=== PATIENT | female | born 1965 | race Caucasian/White ===

== ENCOUNTER → 2016-12-04 | Outpatient (CLI) | payer BC ==
[~2016-12-04] MED LIST: DICL50TA3 PO; HYDR-3126 PO; MULT-513 PO; VALA1TAB2 PO
== END | disposition home or self-care (01) ==
LOC: C.PAPS 08:20
PROVIDERS: ATTEND Obstetrics & Gynecology
DX: Z01.419 Encounter for gynecological examination (general) (routine) without abnormal findings (principal)

== ENCOUNTER → 2017-03-01 | Outpatient (CLI) | payer BC | END | disposition home or self-care (01) | LOC: C.PATHSPEC 16:09 | PROVIDERS: ATTEND Obstetrics & Gynecology | DX: N84.1 Polyp of cervix uteri (principal) ==

== ENCOUNTER → 2017-05-06 | Outpatient (CLI) | payer BC ==
--- NOTE | 2017-05-07 13:22 | MAMMOGRAPHY REPORT ---
BILATERAL DIGITAL SCREENING MAMMOGRAM 3D/2D WITH CAD: 05/06/2017 CLINICAL HISTORY: Routine screening. Patient has no complaints. TECHNIQUE: Breast tomosynthesis in addition to standard 2D mammography was performed. Current study was also evaluated with a Computer Aided Detection (CAD) system. COMPARISON: Comparison is made to exams dated: 05/04/2016 mammogram, 05/03/2015 mammogram, 04/27/2014 m ammogram, 04/23/2013 mammogram, 04/22/2012 mammogram, and 01/04/2011 mammogram - [facility] enter. BREAST COMPOSITION: There are scattered areas of fibroglandular density in both breasts. There have been involutional changes comparing to more remote prior mammograms. FINDINGS: No new suspicious mass, architectural distortion or cluster of microcalcifications is seen . ACR BI-RADS CATEGORY 1: NEGATIVE There is no mammographic evidence of malignancy. A 1 year screening mammogram is recommended. The pa tient will receive written notification of the results. Approximately 10% of breast cancers are not detected with mammography. A negative mammographic report should not delay biopsy if a clinically suggestive mass is present. Didi Lundberg M.D. ay/:05/06/2017 16:15:21 Yeast Pusher: Gali QUEEN(Derrick)(Joo)(BD), [facility] letter sent: Normal 1/2 BI-RADS Code: ACR BI-RADS Category 1: Negative
== END | disposition home or self-care (01) ==
LOC: C.MAMM 15:28
PROVIDERS: ATTEND Nurse Practitioner Family
DX: Z12.31 Encounter for screening mammogram for malignant neoplasm of breast (principal)

== ENCOUNTER 2017-11-24 19:17 | Emergency (ER) | payer BC, OTHER ==
[~2017-11-24] VITALS: Ht 167.6 cm; Wt 71.8 kg
[2017-11-24 19:29] VITALS: TEMP 36.8; Ht 167.6 cm; Wt 71.8 kg
[2017-11-24] MEDS ORDERED: AMOXICILLIN/CLAVULANATE TAB 875 MG TAB PO ONE (20:00)
[2017-11-24] MEDS ORDERED: DIPHTHERIA/TETANUS/PERTUSSIS 0.5 ML SYR/VIAL IM. ONE (20:00)
[2017-11-24] MEDS ORDERED: XYLOCAINE 1%/SOD BICARB 20 ML VIAL INFIL ONE (20:00)
[2017-11-24] MEDS ORDERED: AMOX875T PO (20:34)
--- NOTE | 2017-11-24 20:35 | EMERGENCY ROOM VISIT NOTE ---
History First contact with patient: 19:46 Chief Complaint: LACERATION/CUT (NON-SUTURE) Stated Complaint: CUT ON CHIN AND LIP Nursing Triage Summary: pt states she was up on step stool and fell, lac to chin and lip History of Present Illness The patient is a 52 year old female who presents to the Emergency Room with complaints of a laceration to her face that she sustained when she accidentally fell off of a stepstool striking her face on a vacuum septic cleaner. There is no loss of consciousness. She denies any headache, neck pain, changes in vision or nausea. She is unsure of her last tetanus shot. Review of Systems 6 system review negative. Please see pertinent positives in the history of present illness section. Family History No significant family history Social History Smoking Status: Never Smoker Alcohol Use: none Housing Status: lives with family Occupation Status: employed Current/Historical Medications Scheduled Amoxicillin & Pot Clavulanate (Augmentin 875-125 mg), 1 TAB PO BID Physical Exam Vital Signs Date Time Temp Pulse Resp B/P (MAP) Pulse Ox O2 Delivery O2 Flow Rate FiO2 11/24/17 20:43 70 18 131/80 97 11/24/17 19:29 36.8 81 18 158/74 97 Room Air Physical Exam VITALS: Vitals are noted on the nurse's note and reviewed by myself. Vital signs stable. GENERAL: 52-year-old female, in no acute distress, nondiaphoretic, well- developed well-nourished. HEAD: 0.5 cm, superficial, non-gaping laceration noted inferior to the right side of the lip. No active bleeding. EYES: Conjunctivae without injection, sclerae without icterus. Extraocular movements intact. MOUTH: Mucous membranes moist. There is a 1 cm laceration to the wet vermilion border of the lower lip. It is gaping. No active bleeding. No foreign material in the wound. It appears clean. The teeth are intact. NECK: Supple without nuchal rigidity. Full range of motion NEURO: Patient was alert and oriented to person place and time. Normal sensation to touch. No focal neurological deficits. Medical Decision & Procedures Medications Administered Medications (Trade) Dose Ordered Sig/Nelsy Route Start Time Stop Time Status Last Admin Dose Admin Diphtheria/ Pertussis/Tetanus Vacc (Adacel Inj) 0.5 ml ONCE ONCE IM. 11/24/17 20:00 11/24/17 20:01 DC 11/24/17 20:14 0.5 ML Amoxicillin/ Clavulanate Potassium (Augmentin Tab) 875 mg NOW ONCE PO 11/24/17 20:00 11/24/17 20:02 DC 11/24/17 20:14 875 MG Procedure Verbal consent was obtained to perform the procedure. The wound inferior to the lip was thoroughly cleansed with Betadine and normal saline. The wound edges were approximated very well with Dermabond. Patient tolerated the procedure well. The laceration in the mouth was repaired using the following technique 2 ml of 1% buffered lidocaine was used to anesthetize the laceration. Once the patient was anesthetized, the wound was copiously irrigated under pressure with sterile saline. The wound was explored. Again no foreign material in the wound. The laceration was repaired using 2 simple interrupted 5-0 nylon sutures with the wound edges being well approximated. ED Course The patient was seen and examined She was given an Adacel injection. She was also given 1 dose of Augmentin. The lacerations were repaired. Please see my procedure note. Discharge instructions were reviewed, and she was discharged in good condition Medical Decision Differential diagnosis: Laceration, facial injury, mandibular fracture, dental fracture, head injury This patient is a 52-year-old female who presented to the emergency department with a lacerations as noted above as a result of a fall. She does not have any signs of a head injury. No tenderness over the facial bones. The teeth are well aligned. Lacerations were repaired. She will be put on prophylactic antibiotics as the one laceration is in the oral mucosa. She tolerated the procedure well. She will follow-up in 6-7 days for removal of sutures. Her tetanus shot was also updated. She will return with signs of infection. This chart was completed in part utilizing [employer] Speech Voice Recognition software. Attempts were made to minimize the grammatical errors, random word insertions, pronoun errors and incomplete sentences. Any formal questions or concerns about the content, text or information contained within the body of this dictation should be directly addressed to the provider for clarification. Impression Primary Impression: Laceration Departure Information Dispostion Home / Self-Care Condition GOOD Prescriptions Amoxicillin & Pot Clavulanate (Augmentin 875-125 mg) 1 Tab Tab 1 TAB PO BID for 5 Days, #10 TAB Prov: Clemencia Medeiros PA-C 11/24/17 Referrals Alejandra Gentile DO (PCP) Patient Instructions My [facility] Additional Instructions Please try to gargle twice daily with mouthwash or salt water. Please take ibuprofen 600 mg as needed for pain every 6 hours. Please take the entire course of antibiotics. Please eat yogurt daily with this medication Suture removal will be in 6-7 days. Please watch for signs of infection such as redness, swelling or fever. For these, please return to the emergency department. It was a pleasure participating in your care today.
[2017-11-24 20:43] VITALS: BP 131/80; PULSE 70; O2SAT 97
== END 2017-11-24 20:44 | disposition home or self-care (01) ==
LOC: C.EDB 19:19 → C.EDD 20:44
DX: S01.81XA Laceration without foreign body of other part of head, initial encounter (principal); W10.8XXA Fall (on) (from) other stairs and steps, initial encounter; Z23 Encounter for immunization

== ENCOUNTER → 2017-12-02 | Outpatient (CLI) | payer OTHER ==
--- NOTE | 2017-12-02 16:29 | DIAGNOSTIC IMAGING REPORT ---
R WRIST MIN 3 VIEWS ROUTINE CLINICAL HISTORY: 52 years-old Female presenting with EFFUSION, R WRIST, fall one week ago, pain and swelling along the posterior surface of the right wrist. TECHNIQUE: Frontal, bilateral oblique, and lateral views of the right wrist were obtained. COMPARISON: None. FINDINGS: No acute fracture or malalignment. No advanced degenerative change. No radiographic soft tissue abnormality. IMPRESSION: No acute osseous injury. Electronically signed by: Harman Johnson M.D. 12/02/2017 4:28 PM Dictated Date/Time: 12/02/2017 4:27 PM
== END | disposition home or self-care (01) ==
LOC: C.RAD 15:07
PROVIDERS: ATTEND Family Medicine
DX: M25.431 Effusion, right wrist (principal)

== ENCOUNTER → 2017-12-18 | Outpatient (CLI) | payer OTHER | END | disposition home or self-care (01) | LOC: C.PAPS 11:51 | PROVIDERS: ATTEND Obstetrics & Gynecology | DX: Z12.4 Encounter for screening for malignant neoplasm of cervix (principal); R87.610 Atypical squamous cells of undetermined significance on cytologic smear of cervix (ASC-US) ==